=== PATIENT | female | born 1955 | race Caucasian/White ===

== ENCOUNTER 2017-04-15 15:08 | Emergency (ER) | payer BC ==
[~2017-04-15] VITALS: Ht 160 cm; Wt 81.7 kg
[~2017-04-15 15:08] MED LIST: ADVIL PM1 TABLET PO; ASPIR-LOW81 MG PO; COREG6.25 M1 PO; DAILY VITE1 EAC1 PO; FISH OIL 1,0001 EA11 PO; IRON325 M1 PO; LISINOPRIL10 MG PO; LISINOPRIL5 MG PO; LOVASTATIN40 MG PO; SYNTHROID75 MCG PO; VITAMIN E400 UNIT PO
[2017-04-15 15:35] LABS: HEMATOCRIT 41.6 % (36.0-46.0); MCH 27.4 PG (29.0-34.0); MCHC 33.7 G/DL (30.0-36.0); MCV 81.4 FL (83-99); PLATELET COUNT 192 K/uL (156-360); RBC DIS.WIDTH-SD 41.5 % (39-53); RED BLOOD COUNT 5.11 M/uL (3.80-5.20); WHITE BLOOD COUNT 11.1 K/uL (4.1-10.2)
[2017-04-15 15:46] LABS: ALBUMIN 4.4 g/dL (3.2-4.8); CHLORIDE 101 mEq/L (99-109); SODIUM 135 mEq/L (136-147)
[2017-04-15 15:48] LABS: GLUCOSE 131 mg/dL (70-99); TOTAL PROTEIN 7.6 g/dL (6.4-8.3)
[2017-04-15 15:50] LABS: TOTAL BILIRUBIN 1.1 mg/dL (0.0-1.0)
[2017-04-15 15:52] LABS: ALKALINE PHOSPHATASE 58 IU/L (3-129); CREATININE 0.8 mg/dL (0.6-1.3); GFR ESTIMATE (CALCULATED) > 59 mL/min/
[2017-04-15 15:53] LABS: UREA NITROGEN (BUN) 11 mg/dL (9-23)
[2017-04-15 15:54] LABS: AST (GOT) 16 IU/L (2-34)
[2017-04-15 15:55] LABS: ALT (GPT) 31 IU/L (3-49)
[2017-04-15 16:54] LABS: APPEARANCE CLOUDY ((CLEAR)); BILIRUBIN NEGATIVE; BLOOD SMALL; COLOR YELLOW ((YELLOW)); GLUCOSE (STRIP) NEGATIVE; KETONES NEGATIVE; LEUKOCYTES SMALL; NITRITE NEGATIVE; PROTEIN (STRIP) 30; SPECIFIC GRAVITY 1.027 (1.000-1.030); UROBILINOGEN 0.2 MG/DL (0.2-1.0)
[2017-04-15] MEDS ORDERED: IRON GLYCINATE PO (17:01)
[2017-04-15] MEDS ORDERED: OMEGA-3100 MG PO (17:03)
[2017-04-15] MEDS ORDERED: FISH OIL EC 1,1 EAC1 PO (17:04)
[2017-04-15] MEDS ORDERED: VITAMIN D-32000 UNI2 PO (17:06)
[2017-04-15] MEDS ORDERED: LOVASTATIN40 MG PO (17:08)
[2017-04-15] MEDS ORDERED: COL-RITE100 M1 PO (17:11)
[2017-04-15 17:12] LABS: BACTERIA RARE /HPF; CALCIUM OXALATE CRYSTALS 1+ /HPF; EPITHELIAL CELLS 1+ /HPF; MUCUS 2+ /LPF; UCUL ADDED? YES; WHITE BLOOD CELLS 30-40 /HPF (0-5)
[2017-04-15] MEDS ORDERED: CIPRO500 MG PO (20:05)
[2017-04-15 20:13] VITALS: BP 132/68
== END 2017-04-15 20:14 | disposition home or self-care (01) ==
LOC: EME 15:08
DX: N39.0 Urinary tract infection, site not specified (principal); E78.5 Hyperlipidemia, unspecified; E03.9 Hypothyroidism, unspecified; I25.2 Old myocardial infarction; Z95.1 Presence of aortocoronary bypass graft; Z79.82 Long term (current) use of aspirin; Z91.041 Radiographic dye allergy status
CPT/HCPCS: 74177; 80053; 81003; 83605; 85027; 87086; 99281; 99285; J2270; J7040

== ENCOUNTER → 2017-05-17 | Outpatient (CLI) | payer BC ==
[~2017-05-17] MED LIST changes: +CIPRO500 MG PO; +CO Q-10100 MG PO; +COL-RITE100 M1 PO; +FISH OIL EC 1,1 EAC1 PO; +IRON GLYCINATE PO; +OMEGA-3100 MG PO; +VITAMIN D-32000 UNI2 PO
== END | disposition home or self-care (01) ==
LOC: OPR 08:28 → EDSTATUS 09:00 → OPR 09:00
PROC: 0F903ZX Drainage of Liver, Percutaneous Approach, Diagnostic (ICD-10-PCS; principal; 2017-05-17)
DX: K76.89 Other specified diseases of liver (principal); E03.9 Hypothyroidism, unspecified; I25.10 Atherosclerotic heart disease of native coronary artery without angina pectoris; E78.5 Hyperlipidemia, unspecified; E66.9 Obesity, unspecified; Z68.31 Body mass index [BMI] 31.0-31.9, adult; E55.9 Vitamin D deficiency, unspecified; Z95.1 Presence of aortocoronary bypass graft; Z98.1 Arthrodesis status; Z80.8 Family history of malignant neoplasm of other organs or systems; Z82.49 Family history of ischemic heart disease and other diseases of the circulatory system; Z80.49 Family history of malignant neoplasm of other genital organs; Z83.49 Family history of other endocrine, nutritional and metabolic diseases; Z79.82 Long term (current) use of aspirin; Z88.8 Allergy status to other drugs, medicaments and biological substances; Z91.048 Other nonmedicinal substance allergy status
CPT/HCPCS: 75989; 85610; 85730; 87070; 87075; 87205; 88160

== ENCOUNTER 2017-07-29 09:08 | Emergency (ER) | payer BC ==
[~2017-07-29] VITALS: Ht 160 cm; Wt 83.6 kg
[2017-07-29 09:43] LABS: BASOPHIL (%) 0.9 % (0-1); EOSINOPHIL (%) 3.3 % (0-5); EOSINOPHIL COUNT 0.1 K/uL (0-0.3); HEMATOCRIT 41.3 % (36.0-46.0); HEMOGLOBIN 13.5 G/DL (11.9-15.5); IMMATURE GRANULOCYTE (%) 0.7 % (0.0-0.7); LYMPHOCYTE (%) 25.8 % (15-42); LYMPHOCYTE COUNT 1.1 K/uL (1.0-2.8); MCH 27.1 PG (29.0-34.0); MCHC 32.7 G/DL (30.0-36.0); MCV 82.8 FL (83-99); MONOCYTE (%) 10.7 % (3-12); MONOCYTE COUNT 0.5 K/uL (0-0.8); NEUTROPHIL (%) 58.6 % (45-76); NEUTROPHIL COUNT 2.5 K/uL (1.8-6.4); PLATELET COUNT 185 K/uL (156-360); RBC DIS.WIDTH-CV 15.3 % (11.8-14.6); RBC DIS.WIDTH-SD 45.8 % (39-53); RED BLOOD COUNT 4.99 M/uL (3.80-5.20); WHITE BLOOD COUNT 4.3 K/uL (4.1-10.2)
[2017-07-29 09:49] LABS: INTER. NORMALIZED RATIO 1.1
[2017-07-29 09:51] LABS: PTT 31.1 SEC (25-37)
[2017-07-29 09:52] LABS: CHLORIDE 104 mEq/L (99-109); POTASSIUM 4.2 mEq/L (3.7-5.4); SODIUM 142 mEq/L (136-147)
[2017-07-29 09:53] LABS: GLUCOSE 157 mg/dL (70-99)
[2017-07-29 09:57] LABS: CREATININE 0.9 mg/dL (0.6-1.3); GFR ESTIMATE (CALCULATED) > 59 mL/min/
[2017-07-29 09:58] LABS: UREA NITROGEN (BUN) 13 mg/dL (9-23)
[2017-07-29 10:04] LABS: TROP-I INTERPRETATION NEGATIVE; TROPONIN-I < 0.01 ng/mL (0.0-0.30)
[2017-07-29 12:13] LABS: TROP-I INTERPRETATION NEGATIVE; TROPONIN-I < 0.01 ng/mL (0.0-0.30)
[2017-07-29 13:50] VITALS: BP 149/84
== END 2017-07-29 13:51 | disposition home or self-care (01) ==
LOC: EME 09:08
PROVIDERS: Emergency Medicine
DX: M25.512 Pain in left shoulder (principal); I10 Essential (primary) hypertension; I25.2 Old myocardial infarction; E78.5 Hyperlipidemia, unspecified; Z95.1 Presence of aortocoronary bypass graft; E03.9 Hypothyroidism, unspecified; Z79.82 Long term (current) use of aspirin
CPT/HCPCS: 71045; 80048; 84484; 85025; 85610; 85730; 93005; 99281; 99284